=== PATIENT | female | born 1945 | race Caucasian/White ===

== ENCOUNTER → 2019-10-22 | Outpatient (CLI) | payer OTHER | LOC: SJCVCIMAG 13:50 → SJCVC 13:50 | DX: I73.9 Peripheral vascular disease, unspecified (principal); I25.10 Atherosclerotic heart disease of native coronary artery without angina pectoris; E78.00 Pure hypercholesterolemia, unspecified; E11.9 Type 2 diabetes mellitus without complications; Z95.5 Presence of coronary angioplasty implant and graft; Z90.710 Acquired absence of both cervix and uterus; Z79.899 Other long term (current) drug therapy; Z87.891 Personal history of nicotine dependence ==

== ENCOUNTER → 2019-11-02 | Outpatient (CLI) | payer OTHER ==
[~2019-11-02] VITALS: Ht 162.6 cm; Wt 63.5 kg
[~2019-11-02] MED LIST: ASA81BEC PO; BIOTIN1 MG PO; FISH OIL 1,0001 EAC9 PO; LIPITOR 20 MG T20 M1 PO; LISINOPRIL2.5 MG PO; METFORMIN HCL500 M3 PO; NORVASC 2.5 MG2.5 M1 PO; PLAVIX 75 MG TA75 M1 PO; TIMOLOL GL0.5 %/5 M1 EA. EYE; UNICOMPLEX M TA1 TA1 PO; VYZULTA5 ML OPHTHALMIC
[2019-11-02 07:20] VITALS: BP 152/84
[2019-11-02 07:39] LABS: HEMATOCRIT 40.8 % (37.0-47.0); MCHC 34.3 g/dL (28.0-37.0); MCV 90.5 fL (80.0-100.0); RBC 4.51 mil/uL (4.20-5.00); RDW 12.6 % (10.5-14.5); WBC 6.6 thou/uL (4.0-11.0)
[2019-11-02 07:47] LABS: CALCIUM 8.7 mg/dL (8.5-10.1); CREATININE 0.8 mg/dL (0.6-1.0); POTASSIUM 4.2 mmol/L (3.5-5.1)
--- NOTE | 2019-11-02 08:33 | EKG ---
[facility] [place] [address] ELECTROCARDIOGRAM REPORT Name: ROSS AMAYA Room #: REG [facility]#: [id number] Admission: 11/02/19 Attend Phys: Praveen Cowart MD, Discharge: Date of : 49 Report #: [id number] THIS REPORT FOR: cc: Wendy Pereira MD, Julie MD Lundgren,Catrachito Castano MD [facility] ~ THIS REPORT FOR: //name// [facility] Test Date: 2019-11-02 Test Time: 07:21:46 Pat Name: ROSS AMAYA Department: Room: Gender: Asset Protection Representative: Lupe GIFFORD : 1945 Requested By: Praveen Cowart Order Number: [id number] MD: Catrachito Cordero Measurements Intervals [place] Rate: 68 P: 68 WI: 164 QRS: 68 QRSD: 99 T: 49 QT: 411 QTc: 438 Interpretive Statements Sinus rhythm Possible anteroseptal infarct, age indeterminate No previous ECG available for comparison Electronically Signed On 11-02-2019 8:31:12 CDT by Catrachito Cordero [email or web address] <ELECTRONICALLY SIGNED> By: Catrachito Cordero MD, FACC 11/02/19 0831 0 0 Catrachito Cordero MD, [facility] /EPI
--- NOTE | 2019-11-02 08:35 | NUR ---
SPIRITUAL CARE- A PRE-PROCEDURE VISIT WAS COMPLETED BY THIS TRANSPORTATION DEPARTMENT SUPERVISOR
--- NOTE | 2019-11-03 18:05 | CATHLAB ---
[facility] [place] [address] INVASIVE PROCEDURE REPORT Name: ROSS AMAYA Room #: REG [facility] Carlyn#: [id number] Admission: 11/02/19 Attend Phys: Praveen Cowart MD, Discharge: Date of : 49 Report #: [id number] THIS REPORT FOR: cc: Wendy Pereira MD, Julie MD Mancuso, Gerald M. MD [facility] ~ APPROVED REPORT Study performed: 11/02/2019 09:29:34 Patient Details Patient Status: Out-Patient Room #: The patient is a 74 year-old female Event Personnel Praveen Cowart Powder Nipper, Tania Cruz RTR, MODELING INSTRUCTOR Monitor, Justyna Lovell RN RN, Jaquelin Stoddard RT(R)() Scrub Procedures Performed Left Heart Cath Indication Positive stress test Procedure Narrative A SHEATH BRITE-TIP 6F X 11CM ([id number]) sheath was inserted into the LFA^. Coronary angiography was performed using coronary diagnostic catheters. The right coronary system was accessed and visualized with a JR4 catheter. The left coronary system was accessed and visualized with a JL4 catheter. The left ventricle was accessed and visualized with a pigtail catheter. Left ventriculogram was performed in 30 degree projection. Closure device was deployed with a 6 Fr MYNXGRIP 6/7F #[id number]. The patient tolerated the procedure well and there were no complications associated with the procedure. There was no hematoma. Intraoperative Conscious Sedation Sedation start time: 08:19 Case end Time: 09:59 Fentanyl 100 mcg Versed 2.0 mg Conscious sedation is a combined total of peripheral procedure and left heart cath. Contrast (Visipaque 270) is a combined total of peripheral procedure [facility] [address] [email or web address] [address] INVASIVE PROCEDURE REPORT Name: ROSS AMAYA SUKHDEV Room #: REG [facility] [id number] Admission: 11/02/19 Attend Phys: Praveen Cowart, Discharge: Date of : 49 Report #: [id number] and left heart cath. Omnipaque 350 was used, also. 55ml Fluoro time and dose are a combined total for peripheral procedure and left heart cath. Fluoro Time: 11.80 minutes Dose: DAP 16064.98 cGycm2 1646 mGy Contrast Type and Amount: Visipaque 156 ml Hemodynamics The aortic pressure is 155/59 mmHg with a mean of 97 mmHg. The left ventricular pressure is 158/7 mmHg with a mean of mmHg. The left ventricular end diastolic pressure is 26 mmHg. PCI Technique Lesion Percutaneous coronary intervention was performed on the Ostial common iliac. Conclusion 1. Normal left jugular size and systolic function EF 60% #2 left main mild irregularities giving rise to LAD and circumflex. #3 LAD extends around to the apex is a smaller diffusely diseased vessel but no occlusive disease. #4 circumflex OM nondominant but moderate OM branch with mild irregularity #5 dominant right coronary artery with 3040% proximal and 4050% mid vessel a small diffusely diseased PDA system. No indication for intervention. Recommendations and plan: Continue aggressive risk factor modification. No indication for coronary intervention. See Dr. Jacinto's dictation for his peripheral intervention. <ELECTRONICALLY SIGNED> By: Praveen Cowart MD, [facility] 11/03/191802 02 02 Praveen Cowart MD, FAC /INF
== END | disposition home or self-care (01) ==
LOC: CATH 06:55
PROVIDERS: Internal Medicine Cardiovascular Disease
DX: R94.39 Abnormal result of other cardiovascular function study (principal); I25.10 Atherosclerotic heart disease of native coronary artery without angina pectoris; I70.213 Atherosclerosis of native arteries of extremities with intermittent claudication, bilateral legs; I70.1 Atherosclerosis of renal artery; I10 Essential (primary) hypertension; E11.9 Type 2 diabetes mellitus without complications; Z98.890 Other specified postprocedural states; Z79.899 Other long term (current) drug therapy; Z90.710 Acquired absence of both cervix and uterus; Z87.891 Personal history of nicotine dependence; Z79.82 Long term (current) use of aspirin

== ENCOUNTER → 2020-03-08 | Outpatient (CLI) | payer OTHER | LOC: SJCVCIMAG 07:38 | PROVIDERS: ATTEND Nuclear Medicine Nuclear Cardiology | DX: I73.9 Peripheral vascular disease, unspecified (principal); I77.9 Disorder of arteries and arterioles, unspecified; I25.10 Atherosclerotic heart disease of native coronary artery without angina pectoris; I10 Essential (primary) hypertension; E78.00 Pure hypercholesterolemia, unspecified; E11.9 Type 2 diabetes mellitus without complications; Z95.5 Presence of coronary angioplasty implant and graft; Z95.820 Peripheral vascular angioplasty status with implants and grafts; Z79.899 Other long term (current) drug therapy; Z87.891 Personal history of nicotine dependence ==

== ENCOUNTER → 2020-03-17 | Outpatient (CLI) | payer OTHER | LOC: SJCVC 11:43 | PROVIDERS: ATTEND Internal Medicine Cardiovascular Disease | DX: I25.10 Atherosclerotic heart disease of native coronary artery without angina pectoris (principal); I10 Essential (primary) hypertension; E78.00 Pure hypercholesterolemia, unspecified; I73.9 Peripheral vascular disease, unspecified; I65.23 Occlusion and stenosis of bilateral carotid arteries; E11.9 Type 2 diabetes mellitus without complications; I77.1 Stricture of artery; Z79.899 Other long term (current) drug therapy; Z87.891 Personal history of nicotine dependence ==

== ENCOUNTER → 2020-12-13 | Outpatient (CLI) | payer OTHER | LOC: SJCVCIMAG 08:10 | PROVIDERS: ATTEND Nuclear Medicine Nuclear Cardiology | DX: I65.23 Occlusion and stenosis of bilateral carotid arteries (principal); I70.8 Atherosclerosis of other arteries; I49.3 Ventricular premature depolarization; M79.604 Pain in right leg; M79.605 Pain in left leg; I25.10 Atherosclerotic heart disease of native coronary artery without angina pectoris; R53.83 Other fatigue; R06.00 Dyspnea, unspecified; I73.9 Peripheral vascular disease, unspecified; I77.9 Disorder of arteries and arterioles, unspecified; I10 Essential (primary) hypertension; E78.00 Pure hypercholesterolemia, unspecified; E11.51 Type 2 diabetes mellitus with diabetic peripheral angiopathy without gangrene; Z95.5 Presence of coronary angioplasty implant and graft; Z90.710 Acquired absence of both cervix and uterus; Z79.82 Long term (current) use of aspirin; Z79.84 Long term (current) use of oral hypoglycemic drugs; Z79.899 Other long term (current) drug therapy; Z87.891 Personal history of nicotine dependence; Z82.49 Family history of ischemic heart disease and other diseases of the circulatory system ==

== ENCOUNTER → 2021-07-12 | Outpatient (CLI) | payer OTHER | LOC: SJCVCIMAG 09:21 | PROVIDERS: ATTEND Nuclear Medicine Nuclear Cardiology | DX: I70.8 Atherosclerosis of other arteries (principal); I25.10 Atherosclerotic heart disease of native coronary artery without angina pectoris; I77.9 Disorder of arteries and arterioles, unspecified; M79.605 Pain in left leg; M79.604 Pain in right leg; I73.9 Peripheral vascular disease, unspecified; I10 Essential (primary) hypertension; E78.00 Pure hypercholesterolemia, unspecified; E11.9 Type 2 diabetes mellitus without complications; Z87.891 Personal history of nicotine dependence; Z72.89 Other problems related to lifestyle; Z79.82 Long term (current) use of aspirin; Z79.84 Long term (current) use of oral hypoglycemic drugs; Z79.899 Other long term (current) drug therapy; Z95.5 Presence of coronary angioplasty implant and graft; Z82.49 Family history of ischemic heart disease and other diseases of the circulatory system ==